=== PATIENT | female | born 1975 | race Caucasian/White ===

== ENCOUNTER 2017-01-28 13:51 | Emergency (ER) | payer BC ==
[~2017-01-28] VITALS: Ht 165.1 cm; Wt 98.1 kg
--- OUTSIDE RECORDS SUMMARY | 2017-01-28 13:56 | XMS REPORT | Continuity of Care Document ---
Author Author [facility] Address Unknown Phone Unavailable Allergies Active Description Code Type Severity Reaction Onset Reported/Identified Relationship to Patient Clinical Status Yes No Known Drug Allergies [id number] Drug Allergy Unknown N/ A 03/02/2015 Medications Problems Date Dx Coded Attending Type Code Diagnosis Diagnosed By 10/07/2014 Rozina Yao Ot 245.9 02/17/2015 Rozina Yao Ot 245.9 03/03/2015 BETO SAMUELS, LEI Hinson Ot 245.2 03/03/2015 BETO SAMUELS, LEI Hinosn Ot 300.4 03/03/2015 BETO SAMUELS, LEI Hinson Ot 362.50 03/03/2015 BETO SAMUELS, LEI Hinson Ot 455.0 03/03/2015 BETO SAMUELS, LEI Hinson Ot 455.3 03/03/2015 BETO SAMUELS, LEI Hinson Ot 569.42 03/03/2015 BETO SAMUELS, LEI Hinson Ot 578.1 03/03/2015 BETO SAMUELS, LEI Hinson Ot 751.5 03/03/2015 BETO SAMUELS, LEI Hinson Ot 787.91 03/03/2015 BETO SAMUELS, LEI Hinson Ot 787.99 03/05/2015 BETO SAMUELS, LEI Hinson Ot 787.91 03/15/2015 BETO SAMUELS, LEI Hinson Ot 578.1 03/15/2015 BETO SAMUELS, LEI Hinson Ot 787.91 01/13/2016 DALTON SAMUELS, NIXON R Ot E34.8 01/13/2016 DALTON SAMUELS, NIXON R Ot J32.0 01/13/2016 DALTON SAMUELS, NIXON R Ot Z09 01/19/2016 DALTON SAMUELS, NIXON R Ot E34.8 01/19/2016 DALTON SAMUELS, NIXON R Ot J32.0 01/19/2016 DALTON SAMUELS, NIXON R Ot Z09 01/27/2016 DALTON SAMUELS, NIXON R Ot E34.8 OTHER SPECIFIED ENDOCRINE DISORDERS 01/27/2016 DALTON SAMUELS, NIXON Lozada Ot J32.0 CHRONIC MAXILLARY SINUSITIS 01/27/2016 DALTON SAMUELS, NIXON Lozada Ot Z09 ENCNTR FOR F/U EXAM AFT TRTMT FOR COND O Procedures Results Encounters ACCT No. Visit Date/Time Discharge Status Pt. Type Provider Facility Loc./Unit Complaint [id number] 09/04/2015 09:10:00 2014 23:59:59 CLS Outpatient LISA SPAIN, B[facility] [id number] 03/03/2015 07:22:00 2014 11:44:00 DIS Outpatient BETO SAMUELS, [facility] [id number] 02/19/2015 09:15:00 2014 23:59:59 CLS Outpatient BETO SAMUELS, [facility] [id number] 02/18/2015 08:56:00 2014 23:59:59 CLS Outpatient BETO SAMUELS, [facility] LAB [id number] 09/16/2014 14:41:00 2013 23:59:59 CLS Outpatient Rozina Yao [facility] RAD [id number] 01/11/2016 13:06:00 ACT Outpatient DALTON SAMUELS, NIXON Lozada [facility] RAD
--- OUTSIDE RECORDS SUMMARY | 2017-01-28 13:58 | XMS REPORT | Continuity of Care Document ---
Author Author [facility] Address Unknown Phone Unavailable Allergies Active Description Code Type Severity Reaction Onset Reported/Identified Relationship to Patient Clinical Status Yes No Known Drug Allergies [id number] Drug Allergy Unknown N/ A 03/02/2015 Medications Problems Date Dx Coded Attending Type Code Diagnosis Diagnosed By 10/07/2014 Rozina Yao Ot 245.9 02/17/2015 Rozina Yao Ot 245.9 03/03/2015 BETO SAMUELS, LEI Hinson Ot 245.2 03/03/2015 BETO SAMUELS, LEI Hinson Ot 300.4 03/03/2015 BETO SAMUELS, LEI Hinson Ot 362.50 03/03/2015 BETO SAMUELS, LEI Hinson Ot 455.0 03/03/2015 BETO SAMUELS, LEI Hinson Ot 455.3 03/03/2015 BETO SAMUELS, LEI Hinson Ot 569.42 03/03/2015 BETO SAMUELS, LEI Hinson Ot 578.1 03/03/2015 BETO SAMUELS, LEI Hinson Ot 751.5 03/03/2015 BETO SAMUELS, LEI Hinson Ot 787.91 03/03/2015 BETO SAMUELS, LEI Hinson Ot 787.99 03/05/2015 BETO SAMUELS, LEI Hinsno Ot 787.91 03/15/2015 BETO SAMUELS, LEI Hinson [...] Status Pt. Type Provider Facility Loc./Unit Complaint [id number] 09/04/2015 09:10:00 2014 23:59:59 CLS Outpatient LISA SPAIN, BANDAR [facility] [id number] 03/03/2015 07:22:00 2014 11:44:00 DIS Outpatient BETO SAMUELS, [facility] [id number] 02/19/2015 09:15:00 2014 23:59:59 CLS Outpatient BETO SAMUELS, [facility] [id number] 02/18/2015 08:56:00 2014 23:59:59 CLS Outpatient BETO SAMUELS, [facility] LAB [id number] 09/16/2014 14:41:00 2013 23:59:59 CLS Outpatient Rozina Yao [facility] RAD [id number] 01/11/2016 13:06:00 ACT Outpatient DALTON SAMUELS, NIXON Lozada [facility] RAD
[2017-01-28] MEDS ORDERED: SODIUM CHLORIDE FLUSH 10 ML SYR IV PRN (14:05)
[2017-01-28] MEDS ORDERED: KETOROLAC 30 MG/ML (TORADOL) 1 ML VIAL IV ONE (14:05)
[2017-01-28 14:16] LABS: BASOPHILS % (AUTO) 1 % (0-2); EOSINOPHILS # (AUTO) 0.1 10^3uL; EOSINOPHILS % (AUTO) 1 % (0-4); MEAN CORPUSCULAR HGB CONC 34.5 g/dL (31.0-37.0); MEAN CORPUSCULAR VOLUME 91 FL (80-100); MEAN PLATELET VOLUME 9.1 FL (6.0-9.5); MONOCYTES # (AUTO) 0.8 X10^3; MONOCYTES % (AUTO) 8 % (3-11); NEUTROPHILS # (AUTO) 6.7 X10^3; NEUTROPHILS % (AUTO) 63 % (51-67); PLATELET COUNT 379 10^3uL (150-450); WHITE BLOOD COUNT 10.72 10^3uL (4.0-11.0)
[2017-01-28 14:18] LABS: MEAN CORPUSCULAR HEMOGLOBIN 31.5 PG (26.0-34.0)
[2017-01-28 14:24] LABS: ALBUMIN 4.4 g/dL (3.4-5.0); ANION GAP 15.7 MEQ/L (3-15); CALCULATED IONIZED CALCIUM 4.2 mg/dL (3.8-4.6); TOTAL PROTEIN 7.8 g/dL (6.4-8.5)
--- NOTE | 2017-01-28 14:25 | NUR ---
US called at 1400
[2017-01-28 15:04] VITALS: BP 131/59
--- NOTE | 2017-01-28 15:04 | NUR ---
urine analysis not needed, diag with gall stones
--- NOTE | 2017-01-29 07:24 | Diagnostic Imaging Report ---
PROCEDURE: US Abdomen, limited. TECHNIQUE: Multiple realtime grayscale images were obtained over the abdomen in various projections. INDICATION: Epigastric pain radiating to the back. Comparison: None. Discussion: Sonographic evaluation of the right upper quadrant was performed. Hyperechoic nodule within the right hepatic lobe measures 2.7 x 1.8 x 2.3 cm. Imaging characteristics are suggestive of a hemangioma though indeterminate. At a minimum, recommend 3-6 month sonographic followup to document stability. Otherwise contrast-enhanced multiphase cross-sectional imaging of the abdomen could be performed for more definitive evaluation. The liver is otherwise normal in echotexture and size. Multiple gallstones are present. No gallbladder wall thickening or pericholecystic fluid. Common bile duct is mildly dilated measuring 0.9 cm. Choledocholithiasis cannot be excluded. The pancreas is mostly obscured due to overlying bowel gas. The spleen is normal in echotexture and size measuring 9.5 cm. The right kidney appears normal in echotexture and size without evidence of hydronephrosis or renal mass. The right kidney measures 12.2 cm. There is no ascites or abnormal bowel loops identified. No sonographic Cho sign was reported. IMPRESSION: 1. Cholelithiasis with mild biliary duct dilatation. No secondary inflammatory changes identified. 2. Hyperechoic nodule within the right hepatic lobe as described. See above recommendations. Dictated by: Dictated on workstation # [id number]
== END 2017-01-28 15:18 | disposition home or self-care (01) ==
LOC: ED 13:53
DX: K80.10 Calculus of gallbladder with chronic cholecystitis without obstruction (principal)
CPT/HCPCS: 36415; 76705; 80053; 83690; 85025; 93005; 96374; 99285; J1885; 99283

== ENCOUNTER 2017-02-01 09:32 | Day surgery (SDC) | payer BC ==
[~2017-02-01] VITALS: Ht 165.1 cm; Wt 76.4 kg
[2017-02-01] VITALS (7 sets, daily range): BP systolic 115–144; BP diastolic 57–73
[~2017-02-01 09:32] MED LIST: LACTATED RINGERS 1,000 ML IV SCH; SODIUM CHLORIDE FLUSH 3 ML SYR IV PRN
--- OUTSIDE RECORDS SUMMARY | 2017-02-01 09:35 | XMS REPORT | Continuity of Care Document ---
Author Author [facility] Address Unknown Phone Unavailable Care Team Providers Care Kiln Firer Name Role Phone NIXON HOFFMAN MD PCP [phone] Insurance Providers Payer Name Policy Number Subscriber Name Relationship [facility] [id number] Gustavo Forte 18 Self / Same As Patient Advance Directives Directive Response Recorded Date/Time Advanced Directives Unknown 01/28/17 2:01pm Type Durable Power of Amusement Ride Operator 03/03/15 7:26am Type Living Will 03/03/15 7:26am Chief Complaint and Reason for Visit Chief Complaint Cardiac Complaint Reason for Visit [id number] Problems Active Problems Medical Problem Onset Date Status Cholelithiases Unknown Acute Chronic diarrhea Unknown Acute Viral pharyngitis Unknown Acute Medications No known medications. Social History Query Response Start Date Stop Date Smoking Status Never smoker Hospital Discharge Instructions No hospital discharge instructions. Plan of Care Discharge Date 01/28/17 3:18pm Disposition 01 HOME OR SELF-CARE Condition at Discharge Stable Instructions/Education Provided Gallstones Prescriptions See Medication Section Referrals JAILENE BALDERAS MD - Additional Instructions/Education Some of your test results may not be complete prior to your leaving the Emergency Department. The Emergency Department is not authorized to give test results over the phone. Please contact the doctor's office listed in this packet of information for your final results. Follow up with your primary care physician or return to the Emergency Department for worsening or worrisome symptoms. * Emergency Department phone number: [phone], x [phone]* MEDICAL RECORD If you need copies of your X-rays, call [phone]. If you need copies of your medical record, including lab results, a signed authorization for release of records will be required. A telephone call for release of Health Information is not allowed. BILLING Billing can sometimes be confusing and frustrating. To help avoid confusion in the future, please take a moment to acquaint yourself with the billing parties for services. SERVICE BILLING LIBERTARIAN Emergency Room Services [facility] Physician Services [facility] X-rays [facility] Patients will receive bills for services from the appropriate provider. If you have any questions about your [facility] bill, our staff will be happy to assist you. Please call [phone], and ask for the billing department. THANK YOU for choosing [facility] as your emergency care provider! Care Plan and Goals ~~Discharge Care Plan~~ Problem: Chest, epigastric or chest wall pain Goal: Decreased pain Instructions: Take medication(s) as directed. Follow home discharge instructions. Follow up with primary care physician or chief port director as directed. Functional Status No functional status results. Allergies, Adverse Reactions, Alerts No known allergies. Immunizations No immunization records. Vital Signs Acute Vital Signs Vital Response Date/Time Temperature (Fahrenheit) 98.1 01/28/2017 3:04pm Pulse 89 bpm 01/28/2017 3:04pm Respirations 18 01/28/2017 3:04pm Height 5 ft 5 in Weight 216 lb Body Mass Index 35.0 kg/m^2 Results Laboratory Results Test Name Result Units Flags Reference Collection Date/Time Result Date/ Time Comments White Blood Count 10.72 10^3uL 4.0-11.0 01/28/2017 2:05pm 01/28/2017 2: 18pm Red Blood Count 4.00 10^6uL 4.00-5.00 01/28/2017 2:05pm 01/28/2017 2: 18pm Hemoglobin 12.6 g/dL 12.0-15.5 01/28/2017 2:05pm 01/28/2017 2:18pm Hematocrit 36.50 % 35.00-45.00 01/28/2017 2:05pm 01/28/2017 2:18pm Mean Corpuscular Volume 91 FL 80-100 01/28/2017 2:05pm 01/28/2017 2: 18pm Mean Corpuscular Hemoglobin 31.5 PG 26.0-34.0 01/28/2017 2:05pm 2016 2:18pm Mean Corpuscular Hemoglobin Concent 34.5 g/dL 31.0-37.0 01/28/2017 2: 05pm 01/28/2017 2:18pm Red Cell Distribution Width 11.7 % L 11.8-15.6 01/28/2017 2:05pm 2016 2:18pm Platelet Count 379 10^3uL 150-450 01/28/2017 2:05pm 01/28/2017 2:18pm Mean Platelet Volume 9.1 FL 6.0-9.5 01/28/2017 2:05pm 01/28/2017 2: 18pm Neutrophils (%) (Auto) 63 % 51-67 01/28/2017 2:05pm 01/28/2017 2:18pm Lymphocytes (%) (Auto) 28 % 20-46 01/28/2017 2:0501/28/2017 2:18pm Monocytes (%) (Auto) 8 % 3-11 01/28/2017 2:05pm 01/28/2017 2:18pm Eosinophils (%) (Auto) 1 % 0-4 01/28/2017 2:01/28/2017 2:18pm Basophils (%) (Auto) 1 % 0-2 01/28/2017 2:05pm 01/28/2017 2:18pm Neutrophils # (Auto) 6.7 X10^3 01/28/2017 2:05pm 01/28/2017 2:18pm Lymphocytes # (Auto) 3.0 X10^3 01/28/2017 2:05pm 01/28/2017 2:18pm Monocytes # (Auto) 0.8 X10^3 01/28/2017 2:05pm 01/28/2017 2:18pm Eosinophils # (Auto) 0.1 10^3uL 01/28/2017 2:05pm 01/28/2017 2:18pm Basophils # (Auto) 0.1 10^3uL 01/28/2017 2:05pm 01/28/2017 2:18pm Sodium Level 143 mmol/L 135-150 01/28/2017 2:05pm 01/28/2017 2:25pm Potassium Level 3.4 mmol/L L 3.5-5.1 01/28/2017 2:05pm 01/28/2017 2: 25pm Chloride Level 103 mmol/L 98-108 01/28/2017 2:05pm 01/28/2017 2:25pm Carbon Dioxide Level 27 mmol/L -01/28/2017 2:05pm 01/28/2017 2: 25pm Anion Gap 15.7 MEQ/L H 3-01/28/2017 2:05pm 01/28/2017 2:25pm Blood Urea Nitrogen 13 mg/dL -01/28/2017 2:05pm 01/28/2017 2:25pm Creatinine 0.79 mg/dL 0.6-1.2 01/28/2017 2:05pm 01/28/2017 2:25pm BUN/Creatinine Ratio 16 -01/28/2017 2:05pm 01/28/2017 2:25pm Estimat Glomerular Filtration Rate 97.5 01/28/2017 2:2016 2:25pm Estimated GFR (Non- 80.6 01/28/2017 2:2016 2:25pm Glucose Level 107 mg/dL 70-110 01/28/2017 2:0501/28/2017 2:25pm Calculated Osmolality 276 mosm/L L 280-300 01/28/2017 2:05pm 01/28/2017 2:25pm Calcium Level 10.0 mg/dL 8.8-10.8 01/28/2017 2:05pm 01/28/2017 2:25pm Calcium/Ionized Calcium Ratio 4.2 mg/dL 3.8-4.6 01/28/2017 2:0501/28 2:25pm Total Bilirubin 0.4 mg/dL 0.1-1.0 01/28/2017 2:05pm 01/28/2017 2:25pm Alkaline Phosphatase 97 U/L 38-126 01/28/2017 2:05pm 01/28/2017 2:25pm Aspartate Amino Transf (AST/SGOT) 125 U/L H 15-37 01/28/2017 2:05pm 2:25pm Alanine Aminotransferase (ALT/SGPT) 88 U/L H 30-65 01/28/2017 2:05pm 2:25pm Total Protein 7.8 g/dL 6.4-8.5 01/28/2017 2:05pm 01/28/2017 2:25pm Albumin 4.4 g/dL 3.4-5.0 01/28/2017 2:05pm 01/28/2017 2:25pm Albumin/Globulin Ratio 1.294 1.1-1.8 01/28/2017 2:05pm 01/28/2017 2: 25pm Lipase 177 U/L 23-300 01/28/2017 2:05pm 01/28/2017 2:25pm Procedures No known history of procedures. Encounters Encounter Location Arrival/Admit Date Discharge/Depart Date Attending Provider Departed Emergency Room [facility] 01/28/17 1:53pm 01/28/17 3:18pm XIOMARA BERNABE MD Recent Diagnosis
[2017-02-01] MEDS ORDERED: BUPIVACAINE/EPINEPHRINE 0.5%-1:200,000 (MARCAINE) 30 ML VIAL INJ ONE (10:27)
[2017-02-01] MEDS ORDERED: MIDAZOLAM 2 MG/2 ML (VERSED) VIAL ONE (11:00)
[2017-02-01] MEDS ORDERED: ALFENTANIL 500 MCG/ML (ALFENTA) 5 ML AMP IV ONE (11:00)
[2017-02-01] MEDS ORDERED: PROPOFOL 20 ML IV ONE (11:01)
[2017-02-01] MEDS ORDERED: ROCURONIUM 50 MG/5 ML (ZEMURON) VIAL IV ONE (11:14)
[2017-02-01] MEDS ORDERED: ONDANSETRON 2 MG/ML (Z0FRAN) 2 ML VIAL ONE (11:25)
[2017-02-01] MEDS ORDERED: diphenhydrAMINE 50 MG/ML INJ (BENADRYL) ONE (11:25)
[2017-02-01] MEDS ORDERED: KETOROLAC 60 MG/2 ML (TORADOL) VIAL IM ONE (12:33)
[2017-02-01] MEDS ORDERED: morphine INJ 4 MG/ML 1 ML SYRINGE ONE (12:41)
--- NOTE | 2017-02-01 13:15 | Diagnostic Imaging Report ---
INDICATION: Abdominal pain FINDINGS / IMPRESSION: 12 seconds of fluoroscopy used by Dr. Drake during cholecystectomy. Dictated by: Dictated on workstation # [id number]
[2017-02-01] MEDS ORDERED: morphine INJ 4 MG/ML 1 ML SYRINGE IV PRN (13:25)
[2017-02-01] MEDS ORDERED: ACETAMINOPHEN 500 MG TAB (TYLENOL) PO PRN (13:25)
[2017-02-01] MEDS ORDERED: METOCLOPRAMIDE 10 MG/2 ML (REGLAN) VIAL IV PRN (13:25)
[2017-02-01] MEDS ORDERED: KETOROLAC 30 MG/ML (TORADOL) 1 ML VIAL IV PRN (13:25)
[2017-02-01] MEDS ORDERED: ONDANSETRON 2 MG/ML (Z0FRAN) 2 ML VIAL IV PRN (13:25)
--- NOTE | 2017-02-01 14:22 | OPERATIVE REPORT ---
DATE OF OPERATION: 02/01/2017 PRE-OPERATIVE DIAGNOSIS: Symptomatic cholelithiasis POST-OPERATIVE DIAGNOSIS: Symptomatic cholelithiasis OPERATIVE PROCEDURE: Laparoscopic cholecystectomy with intraoperative cholangiogram SURGEON: Dami Drake MD ABSORBER OPERATOR: STEVE Victor ANESTHESIA: General endotracheal anesthetic INDICATION: The patient is a 41-year-old who was seen with severe recent right upper quadrant abdominal pain requiring an ER visit. She was diagnosed with symptomatic cholelithiasis based on imaging and clinical findings, and offered cholecystectomy. She presents today for this procedure. DESCRIPTION OF PROCEDURE: The patient was informed of the risks and benefits and agreed to proceed. She was taken to the operating room and placed supine on a standard operating table. She was administered preoperative IV antibiotics. When properly anesthetized her abdomen was prepped and draped in the standard sterile fashion. The open technique was used to access the peritoneal cavity through a curvilinear incision above the umbilicus and #0 Vicryl stay sutures were placed in the fascia. A 10-mm port was inserted and CO2 was insufflated to 15 mmHg. A 10-mm 3-D laparoscope was used. The patient was placed in reverse Trendelenburg position and rotated slightly to the left. Under direct vision a subxiphoid 5-mm port and two subcostal right-sided 5-mm ports were placed. The gallbladder was not particularly edematous, but it was distended. We were able to manipulate it easily for retraction. The fundus was retracted superiorly and the infundibulum retracted was cleared of adhesions between it and the colon and duodenum. We were then able to identify the lower portion of the infundibulum and retract it laterally and medially as needed. The peritoneum below the infundibulum was scored with cautery medially and laterally to expose the cystic duct and the cystic artery. The triangle of Calot was well visualized with the cystic artery being the only tubular structure seen entering the gallbladder within the triangle. The cystic duct was clipped proximally and a cholangiogram was obtained through the cystic duct. This showed normal intrahepatic and extrahepatic ducts with no obvious filling defects or extravasation. There was flow into the duodenum. On the final image of the cholangiogram there was a radiolucency in the distal common duct, but this probably was artifact or a bubble. The catheter was removed from the cyst duct. Two clips were placed distally on the cystic duct and it was divided between the proximal claps. The cystic artery was clipped twice proximally, once distally and divided between the distal clips. The gallbladder was then removed from its attachments to the liver with gentle traction and cautery. It was brought up to the abdominal wall, but due to the number and size of the stones, it was not able to fit through the incision. The gallbladder was carefully opened and several tones were removed. The gallbladder still wouldn't fit through the fascial incision, and so this was extended a few millimeters superiorly with the curved Kemp scissors. Were then able to remove the gallbladder. The trocar was returned at the umbilical incision. Inspection of the gallbladder fossa revealed no bleeding with the clips intact on the cystic duct and cystic artery. We irrigated and aspirated the contents above and below the right lobe of the liver. The upper trocars were then removed under direct vision and no bleeding was seen from the abdominal wall. The CO2 was let out of the abdomen and the umbilical port was removed. The stay sutures were tied at the umbilical fascial incision. An additional #0 Vicryl figure-of-8 suture was used to completely close the fascial defect there. The skin was then closed at all 4 incisions with subcuticular 4-0 Monocryl and dressings were applied. The patient tolerated the procedure without complications.
== END 2017-02-01 15:10 | disposition home or self-care (01) ==
LOC: ASC 09:32
PROVIDERS: ATTEND Surgery
DX: K80.10 Calculus of gallbladder with chronic cholecystitis without obstruction (principal); E03.9 Hypothyroidism, unspecified
CPT/HCPCS: 47563; 74300; 88304; J1200; J1885; J2250; J7120